=== PATIENT | female | born 1995 | race American Indian/Alaskan Native ===

== ENCOUNTER 2018-11-21 13:06 | Emergency (ER) | payer SELFPAY ==
[2018-11-21 13:18] VITALS: BP 137/76
--- NOTE | 2018-11-21 13:23 | Event Note ---
ED Screening Note Date of service: 11/21/18 Time: 13:23 ED Screening Note: 23 y o f presents with low suprapubic pain and dysuria This initial assessment/diagnostic orders/clinical plan/treatment(s) is/are subject to change based on patients health status, clinical progression and re-assessment by fellow clinical providers in the ED. Further treatment and workup at subsequent clinical providers discretion. Patient/guardian urged not to elope from the ED as their condition may be serious if not clinically assessed and managed. Initial orders include: ua, upt
[2018-11-21 13:42] LABS: Bacteria,Urine 2+ /HPF (Negative); Bilirubin,Urine NEG (Negative); Blood,Urine SM (Negative); Color,Urine Straw (Yellow); Protein,Urine <15 mg/dL mg/dL (Negative); Urobilinogen,Urine < 2.0 mg/dL (<2.0)
[2018-11-21 13:44] LABS: HCG Qualitative,Urine Negative (Negative)
[2018-11-21] MEDS ORDERED: MACROBID PO ONE (13:53)
--- NOTE | 2018-11-21 14:20 | Emergency Department Report ---
ED Female HPI - General Chief complaint: Urogenital-Female Stated complaint: LOWER ABD PAIN Time Seen by Provider: 11/21/18 13:23 Source: patient Mode of arrival: Ambulatory Limitations: No Limitations - History of Present Illness Initial comments: 23-year-old femalecame past medical history presents to the hospital complaining of dysuria times one week. Patient has 2 episodes of hematuria during this week with blood noticed on wiping. She complains of intermittent Suprapubic abdominal pain associated with urination. Positive nausea but denies vomiting, fever, or back pain. Patient states she has had 2 recent positive test with LMP October 19. - Related Data Previous Rx's Medication Instructions Recorded Last Taken Type Nitrofurantoin [place]/M-Cryst 100 mg PO Q12HR #14 capsule 11/21/18 Unknown Rx [Macrobid CAP] Allergies Allergy/AdvReac Type Severity Reaction Status Date / Time No Known Allergies Allergy Verified 07/21/13 11:23 ED Review of Systems ROS: Stated complaint: LOWER ABD PAIN Other details as noted in HPI Comment: All other systems reviewed and negative ED Past Medical Hx - Past Medical History Previous Medical History?: No Hx Congestive Heart Failure: No Hx Diabetes: No Hx Asthma: Yes (last used inhaler 10 yrs ago) Hx COPD: No - Surgical History Past Surgical History?: No - Social History Smoking Status: Never Smoker Substance Use Type: None - Medications Home Medications: Home Medications Medication Instructions Recorded Confirmed Last Taken Type Nitrofurantoin [place]/M-Cryst 100 mg PO Q12HR #14 capsule 11/21/18 Unknown Rx [Macrobid CAP] ED Physical Exam - General Limitations: No Limitations - Other Other exam information: Normal: No acute distress Head: Atraumatic Eyes: Normal appearance ENT: Moist mucous membranes Neck: Normal appearance, no midline cervical tenderness, no meningismus Chest: Clear to auscultation bilaterally, no wheezes, rales, crackles Cardiovascular: Regular rate and rhythm Abdomen: Soft, nontender, nondistended, no rebound or guarding, normal bowel sounds Back: Normal inspection no CVA tenderness Extremity: Normal appearance, full range of motion Neuro: Alert and oriented 3, speech normal, no gross motor sensory deficit Psych: Appropriate Skin: No rash ED Course Vital Signs 11/21/18 13:14 Temperature 98.1 F Pulse Rate 78 Respiratory 18 Rate Blood Pressure 137/76 O2 Sat by Pulse 99 Oximetry ED Medical Decision Making - Medical Decision Making urine hcg neg serum hcg + macrobid for uti f/u advised with ob and pmd - Differential Diagnosis UTI, cystitis, Critical Care Time: No Critical care attestation.: If time is entered above; I have spent that time in minutes in the direct care of this critically ill patient, excluding procedure time. ED Disposition Clinical Impression: Positive test, UTI (urinary tract infection) Disposition: TO HOME OR SELFCARE Is pt being admited?: No Does the pt Need Aspirin: No Condition: Stable Instructions: (ED), Urinary Tract Infection in Women (ED) Additional Instructions: Take your medications as prescribed. Follow-up with your doctor or the clinic/doctor provided. Return if symptoms worsen. Take [id number] vitamins. The urine test was negative but your blood test was positive. Beta Quant level is 171. Follow up with [facility] to continue to m onitor the status of your . Prescriptions: Nitrofurantoin [place]/M-Cryst [Macrobid CAP] 100 mg PO Q12HR #14 capsule Referrals: LUCY OMER MD [Primary Care Provider] - 3-5 Days MACIEJ NEUMANN MD [Staff Physician] - 3-5 Days [facility] [Provider Group] - 3-5 Days Time of Disposition: 14:37
== END 2018-11-21 14:54 | disposition home or self-care (01) ==
LOC: ED 13:06
DX: Z32.01 Encounter for pregnancy test, result positive (principal); N39.0 Urinary tract infection, site not specified; J45.909 Unspecified asthma, uncomplicated; Z79.899 Other long term (current) drug therapy
CPT/HCPCS: 36415; 81001; 81025; 84702; 87086; 99283

== ENCOUNTER 2018-12-15 18:55 | Emergency (ER) | payer MEDICAID, OTHER ==
[2018-12-15 19:44] VITALS: BP 107/70
--- NOTE | 2018-12-15 19:44 | Event Note ---
ED Screening Note Date of service: 12/15/18 Time: 19:42 ED Screening Note: 23 y o f presents at 8 weeks with moderate vaginal bleeding today This initial assessment/diagnostic orders/clinical plan/treatment(s) is/are subject to change based on patients health status, clinical progression and re- assessment by fellow clinical providers in the ED. Further treatment and workup at subsequent clinical providers discretion. Patient/guardian urged not to elope from the ED as their condition may be serious if not clinically assessed and managed. Initial orders include: labs, ua
[2018-12-15 20:06] LABS: Basophils % (Auto) 0.6 % (0.0-1.8); Eosinophils # (Auto) 0.1 K/mm3 (0.0-0.4); Hematocrit 39.6 % (30.3-42.9); Hemoglobin 13.3 gm/dl (10.1-14.3); Lymphocytes # (Auto) 2.7 K/mm3 (1.2-5.4); Mean Corpuscular HGB Conc 34 % (30-34); Mean Corpuscular Volume 89 fl (79-97); Monocytes # (Auto) 0.6 K/mm3 (0.0-0.8); Monocytes % (Auto) 10.1 % (0.0-7.3); Platelet Count 351 K/mm3 (140-440); Red Blood Count 4.45 M/mm3 (3.65-5.03); Red Cell Distribution Width 14.9 % (13.2-15.2)
[2018-12-15 20:49] LABS: Bilirubin,Urine NEG (Negative); Blood,Urine LG (Negative); Color,Urine Yellow (Yellow); Mucus,Urine FEW /HPF; Protein,Urine <15 mg/dL mg/dL (Negative)
--- NOTE | 2018-12-15 21:41 | Emergency Department Report ---
ED HPI - General Chief complaint: Vaginal Bleeding Stated complaint: 7WK PREG/VAGINAL BLEEDING Time Seen by Provider: 12/15/18 19:42 Source: patient Mode of arrival: Ambulatory Limitations: No Limitations - History of Present Illness Initial comments: Patient is a 23-year-old female presents emergency room with complaints of vaginal bleeding that began yesterday. She states yesterday it was just some light spotting but became slightly heavier today. Patient states she is currently 8 weeks . Patient states she has not yet seen an WOOD AND HARDWARE OUTFITTER and has her first appointment on Friday (12/18/18) and has an ultrasound scheduled. Patient denies any abdominal pain, dysuria, vaginal discharge, any other complaints. Patient denies any past medical history or allergies to medications. /P:1/A:0 - Related Data Previous Rx's Medication Instructions Recorded Last Taken Type Nitrofurantoin [place]/M-Cryst 100 mg PO Q12HR #14 capsule 11/21/18 Unknown Rx [Macrobid CAP] Allergies Allergy/AdvReac Type Severity Reaction Status Date / Time No Known Allergies Allergy Verified 07/21/13 11:23 ED Review of Systems ROS: Stated complaint: 7WK PREG/VAGINAL BLEEDING Other details as noted in HPI Comment: All other systems reviewed and negative ED Past Medical Hx - Past Medical History Previous Medical History?: Yes Hx Congestive Heart Failure: No Hx Diabetes: No Hx Asthma: Yes (last used inhaler 10 yrs ago) Hx COPD: No - Surgical History Past Surgical History?: No - Social History Smoking Status: Never Smoker Substance Use Type: None - Medications Home Medications: Home Medications Medication Instructions Recorded Confirmed Last Taken Type Nitrofurantoin [place]/M-Cryst 100 mg PO Q12HR #14 capsule 11/21/18 Unknown Rx [Macrobid CAP] ED Physical Exam - General Limitations: No Limitations General appearance: alert, in no apparent distress - Head Head exam: Present: atraumatic, normocephalic - Eye Eye exam: Present: normal appearance - ENT ENT exam: Present: mucous membranes moist - Respiratory Respiratory exam: Present: normal lung sounds bilaterally. Absent: respiratory distress, wheezes, rales, rhonchi, stridor, chest wall tenderness, accessory muscle use, decreased breath sounds, prolonged expiratory - Cardiovascular Cardiovascular Exam: Present: regular rate, normal rhythm, normal heart sounds. Absent: systolic murmur, diastolic murmur, rubs, gallop - GI/Abdominal GI/Abdominal exam: Present: soft, normal bowel sounds. Absent: distended, tenderness, guarding, rebound, rigid - Back Exam Back exam: Absent: CVA tenderness (R), CVA tenderness (L) - Neurological Exam Neurological exam: Present: alert, oriented X3 - Psychiatric Psychiatric exam: Present: normal affect, normal mood - Skin Skin exam: Present: warm, dry, intact ED Course Vital Signs 12/15/18 19:43 Temperature 98.6 F Pulse Rate 87 Respiratory 18 Rate Blood Pressure 107/70 O2 Sat by Pulse 99 Oximetry ED Medical Decision Making - Lab Data Result diagrams: 12/15/18 19:49 Lab Results 12/15/18 12/15/18 12/15/18 Range/Units 19:49 19:49 19:49 WBC 5.7 (4.5-11.0) K/mm3 RBC 4.45 (3.65-5.03) M/mm3 Hgb 13.3 (10.1-14.3) gm/dl Hct 39.6 (30.3-42.9) % MCV 89 (79-97) fl MCH 30 (28-32) pg MCHC 34 (30-34) % RDW 14.9 (13.2-15.2) % Plt Count 351 (140-440) K/mm3 Lymph % (Auto) 48.0 H (13.4-35.0) % Armstrong % (Auto) 10.1 H (0.0-7.3) % Eos % (Auto) 1.0 (0.0-4.3) % Baso % (Auto) 0.6 (0.0-1.8) % Lymph # 2.7 (1.2-5.4) K/mm3 Armstrong # 0.6 (0.0-0.8) K/mm3 Eos # 0.1 (0.0-0.4) K/mm3 Baso # 0.0 (0.0-0.1) K/mm3 Seg Neutrophils % 40.3 (40.0-70.0) % Seg Neutrophils # 2.3 (1.8-7.7) K/mm3 HCG, Quant 4976 H (0-4) mIU/mL Urine Color (Yellow) Urine Turbidity (Clear) Urine pH (5.0-7.0) Ur Specific [place] (1.003-1.030) Urine Protein (Negative) mg/dL Urine Glucose (UA) (Negative) mg/dL Urine Ketones (Negative) mg/dL Urine Blood (Negative) Urine Nitrite (Negative) Urine Bilirubin (Negative) Urine Urobilinogen (<2.0) mg/dL Ur Leukocyte Esterase (Negative) Urine WBC (Auto) (0.0-6.0) /HPF Urine RBC (Auto) (0.0-6.0) /HPF U Epithel Cells (Auto) (0-13.0) /HPF Urine Mucus /HPF Blood Type O POSITIVE 12/15/18 Range/Units 20:27 WBC (4.5-11.0) K/mm3 RBC (3.65-5.03) M/mm3 Hgb (10.1-14.3) gm/dl Hct (30.3-42.9) % MCV (79-97) fl MCH (28-32) pg MCHC (30-34) % RDW (13.2-15.2) % Plt Count (140-440) K/mm3 Lymph % (Auto) (13.4-35.0) % Armstrong % (Auto) (0.0-7.3) % Eos % (Auto) (0.0-4.3) % Baso % (Auto) (0.0-1.8) % Lymph # (1.2-5.4) K/mm3 Armstrong # (0.0-0.8) K/mm3 Eos # (0.0-0.4) K/mm3 Baso # (0.0-0.1) K/mm3 Seg Neutrophils % (40.0-70.0) % Seg Neutrophils # (1.8-7.7) K/mm3 HCG, Quant (0-4) mIU/mL Urine Color Yellow (Yellow) Urine Turbidity Slightly-cloudy (Clear) Urine pH 5.0 (5.0-7.0) Ur Specific [place] 1.023 (1.003-1.030) Urine Protein <15 mg/dl (Negative) mg/dL Urine Glucose (UA) Neg (Negative) mg/dL Urine Ketones Neg (Negative) mg/dL Urine Blood Lg (Negative) Urine Nitrite Neg (Negative) Urine Bilirubin Neg (Negative) Urine Urobilinogen 2.0 (<2.0) mg/dL Ur Leukocyte Esterase Tr (Negative) Urine WBC (Auto) 2.0 (0.0-6.0) /HPF Urine RBC (Auto) 2.0 (0.0-6.0) /HPF U Epithel Cells (Auto) 3.0 (0-13.0) /HPF Urine Mucus Few /HPF Blood Type - Radiology Data Radiology results: report reviewed ULTRASOUND OBSTETRIC INDICATION / CLINICAL INFORMATION: preg, vaginal bleeding. Clinical Gestational Age (GA): 8 weeks 1 day TECHNIQUE: Transabdominal and Transvaginal. Color Doppler imaging was utilized. COMPARISON: None available. FINDINGS: GESTATIONAL SAC: Small fluid collection within the uterus may represent early gestational sac. Gestational sac measures 8.8 mm corresponding to 5 weeks 5 days gestational age. YOLK SAC: Present. EMBRYO/FETUS: No definite abnormality. - [place]-Rump Length = 0.38 cm = 6 weeks, 0 day(s). - Heart Rate, beats per minute (if present) = not detected ADNEXA: Mildly complex left ovarian cyst measuring 2.3 cm. Tiny calcification in the right ovary. FREE FLUID: None. ADDITIONAL FINDINGS: None. IMPRESSION: 1. Probable intrauterine with gestational sac, embryonic pole, and yolk sac visualized. Estimated sonographic age is 5 weeks 6 days. 2. No cardiac activity identified in this early . Sonographic follow-up is recommended. 3. 2.3 cm complex left ovarian cyst. Signer Name: Rossi Stallings MD Signed: 12/15/2018 11:19 PM Workstation Name: [id number] Transcribed By: DT Dictated By: Checo Stallings MD Electronically Authenticated By: Checo Stallings MD Signed Date/Time: 12/15/18 3426 - Medical Decision Making Patient is a 23-year-old female presents emergency room with complaints of vaginal bleeding that began yesterday. She states yesterday it was just some light spotting but became slightly heavier today. Patient states she is currently 8 weeks . Patient states she has not yet seen an WO[facility] HARDWARE OUTFITTER and has her first appointment on Friday (12/18/18) and has an ultrasound scheduled. Patient denies any abdominal pain, dysuria, vaginal discharge, any other complaints. Patient denies any past medical history or allergies to medications. /P:1/A:0. VSS. labs are stable. hcg quant is 4976. pt is Rh positive. OB US: 1. Probable intrauterine with gestational sac, embryonic pole, and yolk sac visualized. Estimated sonographic age is 5 weeks 6 days. 2. No cardiac activity identified in this early . Sonographic follow-up is recommended. 3. 2.3 cm complex left ovarian cyst. discussed US results with pt, discussed could be miscarriage vs early , discussed threatened miscarriage with pt. advised pt to please increase your water intake. please take a daily vitamin [id number]. Please have a repeat beta hCG Quant in 2 days. Today your hCG Quant was 4976. please follow-up with her WOOD AND HARDWARE OUTFITTER in the next 2-3 days. return to the emergency room for any New or worsening symptoms. - Differential Diagnosis IUP, ectopic, placenta previa, hemorrhagic cyst, subchorionic hemorrhage Critical care attestation.: If time is entered above; I have spent that time in minutes in the direct care of this critically ill patient, excluding procedure time. ED Disposition Clinical Impression: Threatened miscarriage Disposition: DC-01 TO HOME OR SELFCARE Is pt being admited?: No Does the pt Need Aspirin: No Condition: Stable Instructions: Threatened Miscarriage (ED) Additional Instructions: Please increase your water intake. please take a daily vitamin [id number]. Please have a repeat beta hCG Quant in 2 days. Today your hCG Quant was 4976. please follow-up with her WOOD AND HARDWARE OUTFITTER in the next 2-3 days. return to the emergency room for any New or worsening symptoms. Referrals: your, [facility] HARDWARE OUTFITTER [Other] - 2-3 Days Time of Disposition: 23:29 Print Language: YI
--- NOTE | 2018-12-15 23:24 | Ultrasound Report ---
ULTRASOUND OBSTETRIC INDICATION / CLINICAL INFORMATION: preg, vaginal bleeding. Clinical Gestational Age (GA): 8 weeks 1 day TECHNIQUE: Transabdominal and Transvaginal. Color Doppler imaging was utilized. COMPARISON: None available. FINDINGS: GESTATIONAL SAC: Small fluid collection within the uterus may represent early gestational sac. Gestat ional sac measures 8.8 mm corresponding to 5 weeks 5 days gestational age. YOLK SAC: Present. EMBRYO/FETUS: No definite abnormality. - [place]-Rump Length = 0.38 cm = 6 weeks, 0 day(s). - Heart Rate, beats per minute (if present) = not detected ADNEXA: Mildly complex left ovarian cyst measuring 2.3 cm. Tiny calcification in the right ovary. FREE FLUID: None. ADDITIONAL FINDINGS: None. IMPRESSION: 1. Probable intrauterine with gestational sac, embryonic pole, and yolk sac visualized. Est imated sonographic age is 5 weeks 6 days. 2. No cardiac activity identified in this early . Sonographic follow-up is recommended . 3. 2.3 cm complex left ovarian cyst. Signer Name: Rossi Stallings MD Signed: 12/15/2018 11:19 PM Workstation Name: [id number]
--- NOTE | 2018-12-15 23:24 | Ultrasound Report ---
ULTRASOUND OBSTETRIC INDICATION / CLINICAL INFORMATION: preg, vaginal bleeding. Clinical Gestational Age (GA): 8 weeks 1 day TECHNIQUE: Transabdominal and Transvaginal. Color Doppler imaging was utilized. COMPARISON: None available. FINDINGS: GESTATIONAL SAC: Small fluid collection within the uterus may represent early gestational sac. Gestat ional sac measures 8.8 mm corresponding to 5 weeks 5 days gestational age. YOLK SAC: Present. EMBRYO/FETUS: No definite abnormality. - [place]-Rump Length = 0.38 cm = 6 weeks, 0 day(s). - Heart Rate, beats per minute (if present) = not detected ADNEXA: Mildly complex left ovarian cyst measuring 2.3 cm. Tiny calcification in the right ovary. FREE FLUID: None. ADDITIONAL FINDINGS: None. IMPRESSION: 1. Probable intrauterine with gestational sac, embryonic pole, and yolk sac visualized. Est imated sonographic age is 5 weeks 6 days. 2. No cardiac activity identified in this early . Sonographic follow-up is recommended . 3. 2.3 cm complex left ovarian cyst. Signer Name: Rossi Stallings MD Signed: 12/15/2018 11:19 PM Workstation Name: [id number]
== END 2018-12-15 23:35 | disposition home or self-care (01) ==
LOC: ED 18:55
DX: O20.0 Threatened abortion (principal); O99.511 Diseases of the respiratory system complicating pregnancy, first trimester; J45.909 Unspecified asthma, uncomplicated; Z3A.08 8 weeks gestation of pregnancy; Z79.899 Other long term (current) drug therapy
CPT/HCPCS: 36415; 76801; 76817; 81001; 84702; 85025; 86900; 86901; 99284

== ENCOUNTER 2019-10-20 21:44 | Emergency (ER) | payer MEDICAID ==
[2019-10-21 00:37] LABS: Basophils % (Auto) 0.7 % (0.0-1.8); Eosinophils % (Auto) 0.3 % (0.0-4.3); Hemoglobin 11.9 gm/dl (10.1-14.3); Lymphocytes % (Auto) 46.6 % (13.4-35.0); Mean Corpuscular HGB Conc 33 % (30-34); Mean Corpuscular Volume 86 fl (79-97); Monocytes # (Auto) 0.5 K/mm3 (0.0-0.8); Monocytes % (Auto) 8.2 % (0.0-7.3); Platelet Count 352 K/mm3 (140-440); Red Blood Count 4.21 M/mm3 (3.65-5.03); Red Cell Distribution Width 17.1 % (13.2-15.2)
[2019-10-21 04:51] LABS: Alanine Aminotransferase 20 units/L (7-56); Albumin 4.5 g/dL (3.9-5); BUN/Creatinine Ratio 16; Blood Urea Nitrogen 8 mg/dL (7-17); Hemolysis Index 2
--- NOTE | 2019-10-21 04:57 | Ultrasound Report ---
Early obstetrical ultrasound INDICATION: Early , bleeding TECHNIQUE: Transabdominal FINDINGS: Intrauterine is noted with a pole and yolk sac seen. Estimated gestational age by crown-rump length is 7 weeks 0 days which is less than the 10 weeks 4 days expected by clinica l dating. No cardiac activity was detected. Ovaries appear within normal limits. No free fluid is seen. IMPRESSION: Early demise Signer Name: Apollo Hale MD Signed: 10/21/2019 4:53 AM Workstation Name: [id number]
[2019-10-21 05:12] LABS: Bilirubin,Urine NEG (Negative); Blood,Urine NEG (Negative); Color,Urine Yellow (Yellow); Mucus,Urine 2+ /HPF; Protein,Urine <15 mg/dL mg/dL (Negative); Urobilinogen,Urine < 2.0 mg/dL (<2.0)
--- NOTE | 2019-10-21 05:28 | Emergency Department Report ---
ED HPI - General Chief complaint: Vaginal Bleeding Stated complaint: POSS MISCARRIAGE Time Seen by Provider: 10/21/19 05:15 Source: patient Mode of arrival: Ambulatory Limitations: No Limitations - History of Present Illness Initial comments: Patient is a 23-year-old female that presents emergency room with complaints of vaginal bleeding and threatened miscarriage. Patient states she has had 2 other miscarriages in the past. Patient states that she did not have any pain with this vaginal bleeding. Patient states her vaginal bleeding also stopped while waiting in the waiting room. Patient denies abdominal pain. Patient denies cramping. Patient states she is not sure when her last cycle was. Patient states she sees [facility] for her [facility]ANCE [facility] PROGRAM MANAGER care. Patient states her symptoms started at 930 yesterday. Patient states 2 weeks ago she had an ultrasound and the baby had a heartbeat. Patient denies recent travel. Patient denies recent international travel. Patient denies exposure to the novel coronavirus. Patient denies sick contacts. Patient denies fever and chills. Patient denies cough. Patient denies diarrhea. Patient denies coming in contact with anybody with symptoms of the novel coronavirus. MD Complaint: vaginal bleeding -: Sudden Severity: severe Consistency: constant Associated symptoms: vaginal bleeding. denies: vaginal discharge, abdominal pain, dysuria, headache, vision changes, malaise, dysparuenia, rash, seizure, shortness of breath, syncope, weakness Vaginal bleeding: heavy :: Yes OB History - Current : no complications OB History - Previous Pregnancies: miscarriage Pre-ana care: followed by OB - Related Data Previous Rx's Medication Instructions Recorded Last Taken Type Nitrofurantoin [place]/M-Cryst 100 mg PO Q12HR #14 capsule 11/21/18 Unknown Rx [Macrobid CAP] Allergies Allergy/AdvReac Type Severity Reaction Status Date / Time No Known Allergies Allergy Verified 07/21/13 11:23 ED Review of Systems ROS: Stated complaint: POSS MISCARRIAGE Other details as noted in HPI Constitutional: denies: chills, fever Eyes: denies: eye pain, eye discharge, vision change ENT: denies: ear pain, throat pain Respiratory: denies: cough, shortness of breath, wheezing Cardiovascular: denies: chest pain, palpitations Endocrine: no symptoms reported Gastrointestinal: denies: abdominal pain, nausea, diarrhea Genitourinary: denies: urgency, dysuria, discharge Musculoskeletal: denies: back pain, joint swelling, arthralgia Skin: denies: rash, lesions Neurological: denies: headache, weakness, paresthesias Psychiatric: denies: anxiety, depression Hematological/Lymphatic: denies: easy bleeding, easy bruising ED Past Medical Hx - Past Medical History Previous Medical History?: Yes Hx Congestive Heart Failure: No Hx Diabetes: No Hx Asthma: Yes (last used inhaler 10 yrs ago) Hx COPD: No Additional medical history: 2 miscarriages - Surgical History Past Surgical History?: Yes - Family History Family history: no significant - Social History Smoking Status: Never Smoker Substance Use Type: None - Medications Home Medications: Home Medications Medication Instructions Recorded Confirmed Last Taken Type Nitrofurantoin [place]/M-Cryst 100 mg PO Q12HR #14 capsule 11/21/18 Unknown Rx [Macrobid CAP] ED Physical Exam - General Limitations: No Limitations General appearance: alert, in no apparent distress - Head Head exam: Present: atraumatic, normocephalic - Eye Eye exam: Present: normal appearance - ENT ENT exam: Present: mucous membranes moist - Neck Neck exam: Present: normal inspection - Respiratory Respiratory exam: Present: normal lung sounds bilaterally. Absent: respiratory distress - Cardiovascular Cardiovascular Exam: Present: regular rate, normal rhythm. Absent: systolic murmur, diastolic murmur, rubs, gallop - GI/Abdominal GI/Abdominal exam: Present: soft, normal bowel sounds - Extremities Exam Extremities exam: Present: normal inspection - Back Exam Back exam: Present: normal inspection - Neurological Exam Neurological exam: Present: alert, oriented X3 - Psychiatric Psychiatric exam: Present: normal affect, normal mood - Skin Skin exam: Present: warm, dry, intact, normal color. Absent: rash ED Course - Reevaluation(s) Reevaluation #1: I discussed all results and clinical findings with patient. I discussed plan of care with patient. Patient agrees with plan of care. Patient is stable for discharge. Patient will be discharged home. Patient given discharge instructions. Patient voiced understanding of discharge instructions. 10/21/19 05:41 - Consultations Consultation #1: I discussed case with Dr. Tristan who is on-call for [facility] PROGRAM MANAGER. Dr. Tristan recommends discharge home and to follow-up in their office within 2 to 3 days. 08/06/20 05:35 ED Medical Decision Making - Lab Data Result diagrams: 10/20/19 23:56 10/21/19 04:24 - Radiology Data Radiology results: report reviewed Early obstetrical ultrasound INDICATION: Early , bleeding TECHNIQUE: Transabdominal FINDINGS: Intrauterine is noted with a pole and yolk sac seen. Estimated gestational age by crown-rump length is 7 weeks 0 days which is less than the 10 weeks 4 days expected by clinical dating. No cardiac activity was detected. Ovaries appear within normal limits. No free fluid is seen. IMPRESSION: Early demise - Medical Decision Making Patient is a 23-year-old female presents emergency room for vaginal bleeding during . Patient hCG is positive. Patient labs are essentially unremarkable. Patient had an ultrasound which was positive for early demise. Patient will be referred back to her QUALITY ASSURANCE TEST PROGRAM MANAGER for serial hCGs. I discussed case with Dr. Tristan at [facility] ASSURANCE TEST PROGRAM MANAGER. Dr. Vickers recommends discharge and follow-up in the office. Patient is stable for discharge. Patient given discharge instructions. - Differential Diagnosis Miscarriage, threatened miscarriage, vaginal bleeding. Critical care attestation.: If time is entered above; I have spent that time in minutes in the direct care of this critically ill patient, excluding procedure time. ED Disposition Clinical Impression: Miscarriage, Vaginal bleeding during , demise Qualifiers: Weeks of gestation: 9 weeks Qualified Code(s): Z3A.09 - 9 weeks gestation of Disposition: - TO HOME OR SELFCARE Is pt being admited?: No Does the pt Need Aspirin: No Condition: Stable Instructions: Spontaneous Miscarriage (ED) Additional Instructions: Patient to follow-up with primary care in 2 to 3 days. Patient to follow-up with QUALITY ASSURANCE TEST PROGRAM MANAGER in 2 to 3 days. Patient to rest. Patient to increase water. Patient to take a vitamin. Patient to avoid strenuous exercise or heavy lifting until cleared by QUALITY ASSURANCE TEST PROGRAM MANAGER. Patient to take Tylenol or ibuprofen as needed for pain. Patient to take meds as directed. Patient to return to the ER if condition worsens, changes or new symptoms arise. Referrals: DARRION BLACKWELL [Other] - 2-3 Days VALE TRISTAN MD [Staff Physician] - 2-3 Days Time of Disposition: 05:41
== END 2019-10-21 05:45 | disposition home or self-care (01) ==
LOC: ED 21:44
DX: O03.9 Complete or unspecified spontaneous abortion without complication (principal); J45.909 Unspecified asthma, uncomplicated; Z3A.01 Less than 8 weeks gestation of pregnancy; Z79.899 Other long term (current) drug therapy
CPT/HCPCS: 36415; 76801; 80053; 81001; 84702; 85025; 86900; 86901

== ENCOUNTER 2020-07-14 21:52 | Outpatient (CLI) | payer MEDICAID ==
[2020-07-14 22:24] VITALS: BP 118/58
[2020-07-14] MEDS ORDERED: LACTATED RINGERS 1,000 ML IV ONE (22:48)
== END 2020-07-15 03:40 | disposition home or self-care (01) ==
LOC: TRG 21:52 → APU 21:53 → TRG 07-15 03:40
DX: O47.03 False labor before 37 completed weeks of gestation, third trimester (principal); Z3A.36 36 weeks gestation of pregnancy
CPT/HCPCS: 59025

== ENCOUNTER 2020-07-15 15:30 | Outpatient (CLI) | payer MEDICAID ==
[2020-07-15 16:01] VITALS: BP 113/74
== END 2020-07-15 17:34 | disposition home or self-care (01) ==
LOC: APU 15:30 → TRG 15:30
DX: O47.1 False labor at or after 37 completed weeks of gestation (principal); O26.893 Other specified pregnancy related conditions, third trimester; R11.0 Nausea; M54.5 Low back pain; Z3A.37 37 weeks gestation of pregnancy
CPT/HCPCS: 59025

== ENCOUNTER 2020-07-17 23:16 | Outpatient (CLI) | payer MEDICAID ==
[2020-07-17 23:58] VITALS: BP 120/69
[2020-07-18] MEDS ORDERED: ACETAMINOPHEN 500 MG TAB PO ONE (01:37)
[2020-07-18] MEDS ORDERED: ACETAMINOPHEN W/CODEINE 300-30 MG TAB PO ONE (01:37)
== END 2020-07-18 01:45 | disposition home or self-care (01) ==
LOC: TRG 23:16 → APU 23:17 → TRG 07-18 01:45
PROVIDERS: ATTEND Obstetrics & Gynecology
DX: Z34.93 Encounter for supervision of normal pregnancy, unspecified, third trimester (principal); Z3A.37 37 weeks gestation of pregnancy
CPT/HCPCS: 59025

== ENCOUNTER 2020-08-02 22:29 | Outpatient (CLI) | payer MEDICAID | END 2020-08-02 23:39 | disposition home or self-care (01) | LOC: TRG 22:29 → APU 22:30 | CPT/HCPCS: 59025 ==

== ENCOUNTER 2020-08-05 13:46 | Inpatient (IN) | payer MEDICAID ==
[2020-08-05] MEDS ORDERED: ONDANSETRON 4 MG/2 ML INJ IV PRN (17:29)
[2020-08-05] MEDS ORDERED: BUTORPHANOL 2 MG/1 ML INJ IV PRN ×2 (17:29)
[2020-08-05] MEDS ORDERED: fentaNYL 100 MCG/2 ML INJ IV PRN (17:29)
[2020-08-05] MEDS ORDERED: miSOPROStol 25 MCG TAB PO ONE (17:29)
[2020-08-05] MEDS ORDERED: LIDOCAINE (2%) 20 MG/1 ML VIAL 20 ML MDV INFILTRATI ONE (17:29)
[2020-08-05] MEDS ORDERED: MINERAL OIL 30 ML ORAL LIQD PO PRN (17:29)
[2020-08-05] MEDS ORDERED: ACETAMINOPHEN 325 MG TAB PO PRN (17:29)
[2020-08-05] MEDS ORDERED: TERBUTALINE 1 MG/1 ML INJ SUB-Q PRN (17:29)
[2020-08-05] MEDS ORDERED: ePHEDrine SULFATE 50 MG/1 ML INJ IV PRN (17:29)
--- NOTE | 2020-08-05 17:29 | History and Physical Report ---
History of Present Illness Date of examination: 08/05/20 Date of admission: 08/05/2020 Chief complaint: PROM at 39.5 weeks PNC at [facility] GBS pos Past History Past Surgical History: no surgical history - Obstetrical History Expected Date of Delivery: 08/07/20 Actual Gestation: 39 Week(s) 5 Day(s) : 6 Medications and Allergies Allergies Allergy/AdvReac Type Severity Reaction Status Date / Time No Known Allergies Allergy Verified 07/21/13 11:23 Home Medications Medication Instructions Recorded Confirmed Last Taken Type Pnv No.153/FA/Om3/Dha/Epa/Fish 1 each PO DAILY 07/15/20 07/15/20 07/15/20 History [[facility]] - Vital Signs Vital signs: Vital Signs Pulse BP 79 121/76 08/05/20 14:45 08/05/20 14:45 Temp Pulse Resp BP Pulse Ox 98.1 F 75 121/76 99 08/05/20 14:50 08/05/20 15:30 08/05/20 14:45 08/05/20 15:30 - Physical Exam Breasts: Positive: deferred Cardiovascular: Regular rate Lungs: Positive: Clear to auscultation Abdomen: Positive: normal appearance, soft, normal bowel sounds Genitourinary (Female): Positive: normal external genitalia Uterus: Positive: enlarged (FH 40cm) Anus/Rectum: Positive: normal perianal skin Extremities: Positive: normal Deep Tendon Reflex Grade: Normal +2 - Obstetrical FHR: category 1 Cervical Dilatation: 2 Cervical Effacement Percentage: 20 station: -3 Uterine Contraction Pattern: Irregular Results Result Diagrams: 08/05/20 18:32 Abnormal lab results 08/05/20 Range/Units 14:50 Membranes Rupture Positive A (Negative) All other labs normal. Assessment and Plan admission cytotec abx for GBS if appropriate CFM pain meds yovanny Kowalski MD
[2020-08-05] MEDS ORDERED: LACTATED RINGERS 1,000 ML IV SCH (17:30)
[2020-08-05] MEDS ORDERED: OXYTOCIN DRIP 30 UNITS/500 ML BAG IV SCH (18:00)
[2020-08-05] MEDS ORDERED: AMPICILLIN/NS 2 GM/100 ML 2 GM/100 ML BAG IV ONE (18:00)
[2020-08-05 18:58] LABS: Mean Corpuscular HGB Conc 33 % (30-34); Mean Corpuscular Volume 86 fl (79-97); Platelet Count 367 K/mm3 (140-440); Red Blood Count 4.18 M/mm3 (3.65-5.03); Red Cell Distribution Width 14.7 % (13.2-15.2)
[2020-08-05] MEDS ORDERED: miSOPROStol 100 MCG TAB ONE (21:02)
--- NOTE | 2020-08-06 04:31 | Progress Note ---
Subjective - Subjective Date of service: 08/06/20 Interval history: pt doing well, received cytotex 25mcg POx2 doses cervix 4cm/50%/-3 FHT 130 baseline, moderate variability: Category 1 [place]: Q4-5 minutes Maternal/ well being reassuring at this time. Continue current plan of care Suzi Kowalski MD Objective - Vital Signs Vital Signs: Vital Signs - 12hr 08/05/20 08/05/20 08/05/20 18:12 18:14 18:19 Temperature Pulse Rate 75 85 67 Blood Pressure 137/88 O2 Sat by Pulse 100 99 Oximetry 08/05/20 08/05/20 08/05/20 18:24 18:29 18:34 Temperature Pulse Rate 75 75 88 Blood Pressure O2 Sat by Pulse 100 100 98 Oximetry 08/05/20 08/05/20 08/05/20 18:39 18:44 18:45 Temperature Pulse Rate 65 69 68 Blood Pressure 125/79 O2 Sat by Pulse 98 98 Oximetry 08/05/20 08/05/20 08/05/20 18:49 18:54 18:59 Temperature Pulse Rate 76 64 Blood Pressure O2 Sat by Pulse 98 98 100 Oximetry 08/05/20 08/05/20 08/05/20 19:04 19:09 19:14 Temperature Pulse Rate 73 75 73 Blood Pressure O2 Sat by Pulse 100 100 99 Oximetry 08/05/20 08/05/20 08/05/20 19:15 19:19 19:24 Temperature Pulse Rate 68 90 95 H Blood Pressure 122/76 O2 Sat by Pulse 98 98 Oximetry 08/05/20 08/05/20 08/05/20 19:29 19:34 19:38 Temperature Pulse Rate 75 75 85 Blood Pressure O2 Sat by Pulse 99 100 92 Oximetry 08/05/20 08/05/20 08/05/20 19:39 19:44 19:49 Temperature Pulse Rate 78 85 78 Blood Pressure 128/85 O2 Sat by Pulse 98 100 100 Oximetry 08/05/20 08/05/20 08/05/20 19:52 19:54 19:59 Temperature Pulse Rate 78 72 75 Blood Pressure O2 Sat by Pulse 89 100 100 Oximetry 08/05/20 08/05/20 08/05/20 20:04 20:09 20:14 Temperature Pulse Rate 75 81 84 Blood Pressure O2 Sat by Pulse 100 100 100 Oximetry 08/05/20 08/05/20 08/05/20 20:15 20:19 20:24 Temperature Pulse Rate 71 68 78 Blood Pressure 141/90 O2 Sat by Pulse 100 100 Oximetry 08/05/20 08/05/20 08/05/20 20:29 20:34 20:39 Temperature Pulse Rate 69 73 69 Blood Pressure O2 Sat by Pulse 100 100 99 Oximetry 08/05/20 08/05/20 08/05/20 20:42 20:44 20:49 Temperature Pulse Rate 75 74 73 Blood Pressure 132/76 O2 Sat by Pulse 87 98 99 Oximetry 08/05/20 08/05/20 08/05/20 20:54 20:59 21:04 Temperature Pulse Rate 72 66 72 Blood Pressure O2 Sat by Pulse 100 99 100 Oximetry 08/05/20 08/05/20 08/05/20 21:09 21:14 21:19 Temperature Pulse Rate 86 69 72 Blood Pressure 120/76 O2 Sat by Pulse 98 96 100 Oximetry 08/05/20 08/05/20 08/05/20 21:24 21:29 21:34 Temperature Pulse Rate 71 72 76 Blood Pressure O2 Sat by Pulse 100 99 99 Oximetry 08/05/20 08/05/20 08/05/20 21:39 21:44 21:46 Temperature Pulse Rate 72 75 70 Blood Pressure 134/92 O2 Sat by Pulse 98 97 94 Oximetry 08/05/20 08/05/20 08/05/20 21:49 21:51 21:54 Temperature Pulse Rate 70 76 71 Blood Pressure O2 Sat by Pulse 99 88 98 Oximetry 08/05/20 08/05/20 08/05/20 21:59 22:04 22:09 Temperature Pulse Rate 66 79 70 Blood Pressure O2 Sat by Pulse 98 100 100 Oximetry 08/05/20 08/05/20 08/05/20 22:14 22:19 22:24 Temperature Pulse Rate 66 70 66 Blood Pressure 127/84 O2 Sat by Pulse 100 100 100 Oximetry 08/05/20 08/05/20 08/05/20 22:29 22:37 22:42 Temperature Pulse Rate 72 57 L 71 Blood Pressure O2 Sat by Pulse 100 80 L 100 Oximetry 08/05/20 08/05/20 08/05/20 22:45 22:47 22:52 Temperature Pulse Rate 71 70 76 Blood Pressure 125/84 O2 Sat by Pulse 100 99 Oximetry 08/05/20 08/05/20 08/05/20 22:57 23:02 23:06 Temperature Pulse Rate 69 64 81 Blood Pressure O2 Sat by Pulse 100 99 82 L Oximetry 08/05/20 08/05/20 08/05/20 23:07 23:12 23:14 Temperature Pulse Rate 77 67 68 Blood Pressure 125/87 O2 Sat by Pulse 99 99 Oximetry 08/05/20 08/05/20 08/05/20 23:17 23:18 23:22 Temperature 97.7 F Pulse Rate 64 69 Blood Pressure O2 Sat by Pulse 98 99 Oximetry 08/05/20 08/05/20 08/05/20 23:27 23:32 23:37 Temperature Pulse Rate 60 72 65 Blood Pressure O2 Sat by Pulse 99 98 99 Oximetry 08/05/20 08/05/20 08/05/20 23:42 23:44 23:47 Temperature Pulse Rate 66 61 70 Blood Pressure 121/78 O2 Sat by Pulse 99 98 Oximetry 08/05/20 08/05/20 08/06/20 23:52 23:57 00:02 Temperature Pulse Rate 63 73 65 Blood Pressure O2 Sat by Pulse 99 100 98 Oximetry 08/06/20 08/06/20 08/06/20 00:07 00:12 00:14 Temperature Pulse Rate 61 60 63 Blood Pressure 111/72 O2 Sat by Pulse 99 99 Oximetry 08/06/20 08/06/20 08/06/20 00:17 00:22 00:27 Temperature Pulse Rate 58 L 61 65 Blood Pressure O2 Sat by Pulse 98 97 97 Oximetry 08/06/20 08/06/20 08/06/20 00:32 00:37 00:42 Temperature Pulse Rate 67 88 75 Blood Pressure O2 Sat by Pulse 97 97 96 Oximetry 08/06/20 08/06/20 08/06/20 00:44 00:47 00:52 Temperature Pulse Rate 63 71 77 Blood Pressure 110/69 O2 Sat by Pulse 97 97 Oximetry 08/06/20 08/06/20 08/06/20 00:57 01:02 01:07 Temperature Pulse Rate 81 69 73 Blood Pressure O2 Sat by Pulse 97 98 98 Oximetry 08/06/20 08/06/20 08/06/20 01:12 01:15 01:17 Temperature Pulse Rate 68 81 63 Blood Pressure 130/72 O2 Sat by Pulse 98 99 Oximetry 08/06/20 08/06/20 08/06/20 01:22 01:27 01:32 Temperature Pulse Rate 61 59 L 63 Blood Pressure O2 Sat by Pulse 96 99 98 Oximetry 08/06/20 08/06/20 08/06/20 01:37 01:42 01:46 Temperature Pulse Rate 61 66 59 L Blood Pressure 104/66 O2 Sat by Pulse 99 98 Oximetry 08/06/20 08/06/20 08/06/20 01:47 01:52 01:57 Temperature Pulse Rate 57 L 55 L 64 Blood Pressure O2 Sat by Pulse 98 98 98 Oximetry 08/06/20 08/06/20 08/06/20 02:02 02:07 02:12 Temperature Pulse Rate 57 L 60 67 Blood Pressure O2 Sat by Pulse 99 98 99 Oximetry 08/06/20 08/06/20 08/06/20 02:14 02:17 02:22 Temperature Pulse Rate 66 64 69 Blood Pressure 111/69 O2 Sat by Pulse 99 100 Oximetry 08/06/20 08/06/20 08/06/20 02:27 02:32 02:37 Temperature Pulse Rate 72 67 65 Blood Pressure O2 Sat by Pulse 99 99 99 Oximetry 08/06/20 08/06/20 08/06/20 02:42 02:44 02:47 Temperature Pulse Rate 71 61 61 Blood Pressure 118/81 O2 Sat by Pulse 100 100 Oximetry 08/06/20 08/06/20 08/06/20 02:52 02:57 03:02 Temperature Pulse Rate 70 71 71 Blood Pressure O2 Sat by Pulse 99 99 99 Oximetry 08/06/20 08/06/20 08/06/20 03:07 03:12 03:15 Temperature Pulse Rate 73 74 68 Blood Pressure 108/62 O2 Sat by Pulse 99 99 Oximetry 08/06/20 08/06/20 08/06/20 03:17 03:22 03:27 Temperature Pulse Rate 73 73 79 Blood Pressure O2 Sat by Pulse 98 99 98 Oximetry 08/06/20 08/06/20 08/06/20 03:32 03:37 03:42 Temperature Pulse Rate 76 75 96 H Blood Pressure O2 Sat by Pulse 98 98 97 Oximetry 08/06/20 08/06/20 08/06/20 03:44 03:47 03:52 Temperature Pulse Rate 56 L 58 L 65 Blood Pressure 101/57 O2 Sat by Pulse 99 99 Oximetry 08/06/20 08/06/20 08/06/20 03:57 04:02 04:07 Temperature Pulse Rate 70 59 L 60 Blood Pressure O2 Sat by Pulse 99 99 99 Oximetry 08/06/20 08/06/20 08/06/20 04:12 04:14 04:17 Temperature Pulse Rate 80 63 60 Blood Pressure 136/82 O2 Sat by Pulse 100 100 Oximetry 08/06/20 04:22 Temperature Pulse Rate 61 Blood Pressure O2 Sat by Pulse 100 Oximetry - Labs Labs: Abnormal Labs 08/05/20 14:50 Membranes Rupture Positive A Laboratory Results - last 24 hr 08/05/20 08/05/20 08/05/20 14:50 18:32 18:32 WBC 8.5 RBC 4.18 Hgb 12.0 Hct 36.0 MCV 86 MCH 29 MCHC 33 RDW 14.7 Plt Count 367 Membranes Rupture Positive A Blood Type O POSITIVE Antibody Screen Negative
--- NOTE | 2020-08-06 09:21 | Progress Note ---
Assessment and Plan A: at 39 weeks, 6 days gestation. GBS positive. SROM. P: Continuous EFM. GBS prophylaxis. Augmentation of labor. Subjective - Subjective Date of service: 08/06/20 Principal diagnosis: at 39 weeks, 6 days gestation, SROM Interval history: Assumed care of patient at 08:00 today. Patient is leaking clear fluid. Having contractions every 2-4 minutes. Uterus palpates soft between contractions. Patient received cytotec earlier this AM. Category 1 FHR tracing. SVE /-3. Patient reports: loss of fluid, contractions, no vaginal bleeding Objective - Vital Signs Vital Signs: Vital Signs - 12hr 08/05/20 08/05/20 08/05/20 21:19 21:24 21:29 Temperature Pulse Rate 72 71 72 Respiratory Rate Blood Pressure Blood Pressure [Right] O2 Sat by Pulse 100 100 99 Oximetry 08/05/20 08/05/20 08/05/20 21:34 21:39 21:44 Temperature Pulse Rate 76 72 75 Respiratory Rate Blood Pressure 134/92 Blood Pressure [Right] O2 Sat by Pulse 99 98 97 Oximetry 08/05/20 08/05/20 08/05/20 21:46 21:49 21:51 Temperature Pulse Rate 70 70 76 Respiratory Rate Blood Pressure Blood Pressure [Right] O2 Sat by Pulse 94 99 88 Oximetry 08/05/20 08/05/20 08/05/20 21:54 21:59 22:04 Temperature Pulse Rate 71 66 79 Respiratory Rate Blood Pressure Blood Pressure [Right] O2 Sat by Pulse 98 98 100 Oximetry 08/05/20 08/05/20 08/05/20 22:09 22:14 22:19 Temperature Pulse Rate 70 66 70 Respiratory Rate Blood Pressure 127/84 Blood Pressure [Right] O2 Sat by Pulse 100 100 100 Oximetry 08/05/20 08/05/20 08/05/20 22:24 22:29 22:37 Temperature Pulse Rate 66 72 57 L Respiratory Rate Blood Pressure Blood Pressure [Right] O2 Sat by Pulse 100 100 80 L Oximetry 08/05/20 08/05/20 08/05/20 22:42 22:45 22:47 Temperature Pulse Rate 71 71 70 Respiratory Rate Blood Pressure 125/84 Blood Pressure [Right] O2 Sat by Pulse 100 100 Oximetry 08/05/20 08/05/20 08/05/20 22:52 22:57 23:02 Temperature Pulse Rate 76 69 64 Respiratory Rate Blood Pressure Blood Pressure [Right] O2 Sat by Pulse 99 100 99 Oximetry 08/05/20 08/05/20 08/05/20 23:06 23:07 23:12 Temperature Pulse Rate 81 77 67 Respiratory Rate Blood Pressure Blood Pressure [Right] O2 Sat by Pulse 82 L 99 99 Oximetry 08/05/20 08/05/20 08/05/20 23:14 23:17 23:18 Temperature 97.7 F Pulse Rate 68 64 Respiratory Rate Blood Pressure 125/87 Blood Pressure [Right] O2 Sat by Pulse 98 Oximetry 08/05/20 08/05/20 08/05/20 23:22 23:27 23:32 Temperature Pulse Rate 69 60 72 Respiratory Rate Blood Pressure Blood Pressure [Right] O2 Sat by Pulse 99 99 98 Oximetry 08/05/20 08/05/20 08/05/20 23:37 23:42 23:44 Temperature Pulse Rate 65 66 61 Respiratory Rate Blood Pressure 121/78 Blood Pressure [Right] O2 Sat by Pulse 99 99 Oximetry 08/05/20 08/05/20 08/05/20 23:47 23:52 23:57 Temperature Pulse Rate 70 63 73 Respiratory Rate Blood Pressure Blood Pressure [Right] O2 Sat by Pulse 98 99 100 Oximetry 08/06/20 08/06/20 08/06/20 00:02 00:07 00:12 Temperature Pulse Rate 65 61 60 Respiratory Rate Blood Pressure Blood Pressure [Right] O2 Sat by Pulse 98 99 99 Oximetry 08/06/20 08/06/20 08/06/20 00:14 00:17 00:22 Temperature Pulse Rate 63 58 L 61 Respiratory Rate Blood Pressure 111/72 Blood Pressure [Right] O2 Sat by Pulse 98 97 Oximetry 08/06/20 08/06/20 08/06/20 00:27 00:32 00:37 Temperature Pulse Rate 65 67 88 Respiratory Rate Blood Pressure Blood Pressure [Right] O2 Sat by Pulse 97 97 97 Oximetry 08/06/20 08/06/20 08/06/20 00:42 00:44 00:47 Temperature Pulse Rate 75 63 71 Respiratory Rate Blood Pressure 110/69 Blood Pressure [Right] O2 Sat by Pulse 96 97 Oximetry 08/06/20 08/06/20 08/06/20 00:52 00:57 01:02 Temperature Pulse Rate 77 81 69 Respiratory Rate Blood Pressure Blood Pressure [Right] O2 Sat by Pulse 97 97 98 Oximetry 08/06/20 08/06/20 08/06/20 01:07 01:12 01:15 Temperature Pulse Rate 73 68 81 Respiratory Rate Blood Pressure 130/72 Blood Pressure [Right] O2 Sat by Pulse 98 98 Oximetry 08/06/20 08/06/20 08/06/20 01:17 01:22 01:27 Temperature Pulse Rate 63 61 59 L Respiratory Rate Blood Pressure Blood Pressure [Right] O2 Sat by Pulse 99 96 99 Oximetry 08/06/20 08/06/20 08/06/20 01:32 01:37 01:42 Temperature Pulse Rate 63 61 66 Respiratory Rate Blood Pressure Blood Pressure [Right] O2 Sat by Pulse 98 99 98 Oximetry 08/06/20 08/06/20 08/06/20 01:46 01:47 01:52 Temperature Pulse Rate 59 L 57 L 55 L Respiratory Rate Blood Pressure 104/66 Blood Pressure [Right] O2 Sat by Pulse 98 98 Oximetry 08/06/20 08/06/20 08/06/20 01:57 02:02 02:07 Temperature Pulse Rate 64 57 L 60 Respiratory Rate Blood Pressure Blood Pressure [Right] O2 Sat by Pulse 98 99 98 Oximetry 08/06/20 08/06/20 08/06/20 02:12 02:14 02:17 Temperature Pulse Rate 67 66 64 Respiratory Rate Blood Pressure 111/69 Blood Pressure [Right] O2 Sat by Pulse 99 99 Oximetry 08/06/20 08/06/20 08/06/20 02:22 02:27 02:32 Temperature Pulse Rate 69 72 67 Respiratory Rate Blood Pressure Blood Pressure [Right] O2 Sat by Pulse 100 99 99 Oximetry 08/06/20 08/06/20 08/06/20 02:37 02:42 02:44 Temperature Pulse Rate 65 71 61 Respiratory Rate Blood Pressure 118/81 Blood Pressure [Right] O2 Sat by Pulse 99 100 Oximetry 08/06/20 08/06/20 08/06/20 02:47 02:52 02:57 Temperature Pulse Rate 61 70 71 Respiratory Rate Blood Pressure Blood Pressure [Right] O2 Sat by Pulse 100 99 99 Oximetry 08/06/20 08/06/20 08/06/20 03:02 03:07 03:12 Temperature Pulse Rate 71 73 74 Respiratory Rate Blood Pressure Blood Pressure [Right] O2 Sat by Pulse 99 99 99 Oximetry 08/06/20 08/06/20 08/06/20 03:15 03:17 03:22 Temperature Pulse Rate 68 73 73 Respiratory Rate Blood Pressure 108/62 Blood Pressure [Right] O2 Sat by Pulse 98 99 Oximetry 08/06/20 08/06/20 08/06/20 03:27 03:32 03:37 Temperature Pulse Rate 79 76 75 Respiratory Rate Blood Pressure Blood Pressure [Right] O2 Sat by Pulse 98 98 98 Oximetry 08/06/20 08/06/20 08/06/20 03:42 03:44 03:47 Temperature Pulse Rate 96 H 56 L 58 L Respiratory Rate Blood Pressure 101/57 Blood Pressure [Right] O2 Sat by Pulse 97 99 Oximetry 08/06/20 08/06/20 08/06/20 03:52 03:57 04:02 Temperature Pulse Rate 65 70 59 L Respiratory Rate Blood Pressure Blood Pressure [Right] O2 Sat by Pulse 99 99 99 Oximetry 08/06/20 08/06/20 08/06/20 04:07 04:12 04:14 Temperature Pulse Rate 60 80 63 Respiratory Rate Blood Pressure 136/82 Blood Pressure [Right] O2 Sat by Pulse 99 100 Oximetry 08/06/20 08/06/20 08/06/20 04:17 04:22 04:27 Temperature Pulse Rate 60 61 73 Respiratory Rate Blood Pressure Blood Pressure [Right] O2 Sat by Pulse 100 100 100 Oximetry 08/06/20 08/06/20 08/06/20 04:32 04:37 04:42 Temperature Pulse Rate 62 61 67 Respiratory Rate Blood Pressure Blood Pressure [Right] O2 Sat by Pulse 99 93 100 Oximetry 08/06/20 08/06/20 08/06/20 04:44 04:47 04:52 Temperature Pulse Rate 63 60 70 Respiratory Rate Blood Pressure 120/78 Blood Pressure [Right] O2 Sat by Pulse 100 100 Oximetry 08/06/20 08/06/20 08/06/20 04:57 05:02 05:07 Temperature Pulse Rate 58 L 65 59 L Respiratory Rate Blood Pressure Blood Pressure [Right] O2 Sat by Pulse 100 100 100 Oximetry 08/06/20 08/06/20 08/06/20 05:12 05:15 05:17 Temperature Pulse Rate 58 L 56 L 56 L Respiratory Rate Blood Pressure 92/53 Blood Pressure [Right] O2 Sat by Pulse 100 99 Oximetry 08/06/20 08/06/20 08/06/20 05:22 05:27 05:32 Temperature Pulse Rate 61 60 62 Respiratory Rate Blood Pressure Blood Pressure [Right] O2 Sat by Pulse 99 99 99 Oximetry 08/06/20 08/06/20 08/06/20 05:37 05:42 05:45 Temperature Pulse Rate 58 L 60 56 L Respiratory Rate Blood Pressure 90/51 Blood Pressure [Right] O2 Sat by Pulse 99 98 Oximetry 08/06/20 08/06/20 08/06/20 05:47 05:52 05:57 Temperature Pulse Rate 57 L 60 62 Respiratory Rate Blood Pressure Blood Pressure [Right] O2 Sat by Pulse 99 99 99 Oximetry 08/06/20 08/06/20 08/06/20 06:02 06:07 06:12 Temperature Pulse Rate 60 60 56 L Respiratory Rate Blood Pressure Blood Pressure [Right] O2 Sat by Pulse 99 100 100 Oximetry 08/06/20 08/06/20 08/06/20 06:15 06:17 06:22 Temperature Pulse Rate 65 59 L 64 Respiratory Rate Blood Pressure 108/51 Blood Pressure [Right] O2 Sat by Pulse 100 100 Oximetry 08/06/20 08/06/20 08/06/20 06:27 06:32 06:42 Temperature Pulse Rate 64 53 L 59 L Respiratory Rate Blood Pressure Blood Pressure [Right] O2 Sat by Pulse 100 100 71 L Oximetry 08/06/20 08/06/20 08/06/20 06:43 06:48 06:49 Temperature Pulse Rate 74 61 65 Respiratory Rate Blood Pressure Blood Pressure [Right] O2 Sat by Pulse 72 L 100 75 L Oximetry 08/06/20 08/06/20 08/06/20 06:53 06:58 07:02 Temperature Pulse Rate 65 69 Respiratory Rate Blood Pressure Blood Pressure [Right] O2 Sat by Pulse 100 100 57 L Oximetry 08/06/20 08/06/20 08/06/20 07:03 07:08 07:12 Temperature 97.9 F Pulse Rate 58 L 58 L 56 L Respiratory 18 Rate Blood Pressure 119/68 Blood Pressure 119/70 [Right] O2 Sat by Pulse 100 100 Oximetry 08/06/20 08/06/20 08/06/20 07:13 07:18 07:23 Temperature Pulse Rate 56 L 63 57 L Respiratory Rate Blood Pressure 119/70 Blood Pressure [Right] O2 Sat by Pulse 100 100 100 Oximetry 08/06/20 08/06/20 08/06/20 07:28 07:33 07:38 Temperature Pulse Rate 59 L 63 63 Respiratory Rate Blood Pressure Blood Pressure [Right] O2 Sat by Pulse 100 100 100 Oximetry 08/06/20 08/06/20 08/06/20 07:43 07:44 07:48 Temperature Pulse Rate 70 64 64 Respiratory Rate Blood Pressure 130/74 Blood Pressure [Right] O2 Sat by Pulse 100 100 Oximetry 08/06/20 08/06/20 08/06/20 07:53 07:58 08:03 Temperature Pulse Rate 63 63 62 Respiratory Rate Blood Pressure Blood Pressure [Right] O2 Sat by Pulse 100 100 100 Oximetry 08/06/20 08/06/20 08/06/20 08:08 08:13 08:14 Temperature Pulse Rate 61 69 63 Respiratory Rate Blood Pressure 122/78 Blood Pressure [Right] O2 Sat by Pulse 100 99 Oximetry 08/06/20 08/06/20 08/06/20 08:18 08:23 08:28 Temperature Pulse Rate 84 61 68 Respiratory Rate Blood Pressure Blood Pressure [Right] O2 Sat by Pulse 100 100 99 Oximetry 08/06/20 08/06/20 08/06/20 08:33 08:38 08:43 Temperature Pulse Rate 67 59 L 60 Respiratory Rate Blood Pressure Blood Pressure [Right] O2 Sat by Pulse 98 100 100 Oximetry 08/06/20 08/06/20 08/06/20 08:44 08:47 08:48 Temperature Pulse Rate 63 70 62 Respiratory Rate Blood Pressure 115/67 Blood Pressure [Right] O2 Sat by Pulse 84 100 Oximetry 08/06/20 08/06/20 08/06/20 08:53 08:54 08:58 Temperature Pulse Rate 59 L 84 58 L Respiratory Rate Blood Pressure Blood Pressure [Right] O2 Sat by Pulse 100 86 100 Oximetry 08/06/20 08/06/20 08/06/20 09:03 09:08 09:13 Temperature Pulse Rate 69 74 60 Respiratory Rate Blood Pressure Blood Pressure [Right] O2 Sat by Pulse 93 100 98 Oximetry 08/06/20 08/06/20 09:14 09:16 Temperature Pulse Rate 56 L 57 L Respiratory Rate Blood Pressure 128/84 Blood Pressure [Right] O2 Sat by Pulse 93 Oximetry - Exam Abdomen: Present: normal appearance, soft. Absent: distention, tenderness, guarding, rigidity Uterus: Present: fundal height above umbilicus. Absent: tenderness FHR: category 1 Uterine Contraction Monitor Mode: External Cervical Dilatation: 4 Cervical Effacement Percentage: 60 station: -3 Uterine Contraction Pattern: Regular Uterine Contraction Intensity: Moderate Extremities: normal - Labs Labs: Abnormal Labs 08/05/20 14:50 Membranes Rupture Positive A Laboratory Results - last 24 hr 08/05/20 08/05/20 08/05/20 14:50 18:32 18:32 WBC 8.5 RBC 4.18 Hgb 12.0 Hct 36.0 MCV 86 MCH 29 MCHC 33 RDW 14.7 Plt Count 367 Membranes Rupture Positive A Blood Type O POSITIVE Antibody Screen Negative
[2020-08-06] MEDS ORDERED: OXYTOCIN DRIP 30 UNITS/500 ML BAG IV SCH (11:00)
[2020-08-06] MEDS: AMPICILLIN/NS 1 GM/50 ML 1 GM/50 ML BAG IV SCH ×2 (11:09→15:02)
--- NOTE | 2020-08-06 13:37 | Event Note ---
Date: 08/06/20 [facility] [place]
[2020-08-06] MEDS ORDERED: NALOXONE 2 MG/2 ML INJ IV PRN (16:31)
[2020-08-06] MEDS ORDERED: LACTATED RINGERS 250 ML IV SOLN IV ONE (16:31)
[2020-08-06] MEDS ORDERED: NalbUPHINE 10 MG/1 ML INJ IV PRN (16:31)
[2020-08-06] MEDS ORDERED: diphenhydrAMINE 50 MG/ML VIAL IV PRN (16:31)
[2020-08-06] MEDS ORDERED: ePHEDrine SULFATE 50 MG/1 ML INJ IV PRN (16:31)
--- NOTE | 2020-08-06 16:32 | Anesthesia Consultation ---
Anesthesia Consult and Med Hx Date of service: 08/06/20 - Airway Anesthetic Teeth Evaluation: Good ROM Head & Neck: Adequate Mental/Hyoid Distance: Adequate Mallampati Class: Class II Intubation Access Assessment: Probably Good - Pulmonary Exam CTA: Yes - Cardiac Exam Cardiac Exam: RRR - Pre-Operative Health Status ASA Pre-Surgery Classification: ASA2 Proposed Anesthetic Plan: Epidural - Pulmonary Hx Smoking: No Hx Asthma: Yes (last attack >10 years) COPD: No Hx Pneumonia: No Hx Sleep Apnea: No - Cardiovascular System Hx Hypertension: No Hx Heart Attack/AMI: No Hx Angina: No - Central Nervous System Hx Seizures: No Hx Psychiatric Problems: No - Gastrointestinal Hx Gastroesophageal Reflux Disease: No - Endocrine Hx Renal Disease: No Hx End Stage Renal Disease: No Hx Liver Disease: No Hx Insulin Dependent Diabetes: No Hx Non-Insulin Dependent Diabetes: No Hx Hypothyroidism: No Hx Hyperthyroidism: No - Hematic Hx Anemia: No Hx Sickle Cell Disease: No - Other Systems Hx Alcohol Use: No
--- NOTE | 2020-08-06 16:33 | Progress Note ---
Labor Epidural - Labor Epidural Start Time: 16:15 Stop Time: 16:26 Performed by:: KELSEY WALDRON Procedure: Patient is requesting epidural for labor and pain. H&P, labs were reviewed. Patient IDed, H&P reviewed, all questions and concerns were answered, and consent was signed. Timeout was performed at bedside. Patient in sitting position. Sterile prep and drape was performed. 3ml of 1% lidocaine skin wheal at L[3]- L [4]. 18-gauge Tuohy epidural needle was advanced to loss of resistance with air technique 6cm. Negative CSF negative blood. Epidural catheter advanced to [11] centimeters. [negative] Aspiration [negative] test dose. Sterile dressing applied. Patient tolerated procedure.
--- NOTE | 2020-08-06 16:36 | Event Note ---
Date: 08/06/20 SVE 9/95/0. Patient has just received epidural.
[2020-08-06] MEDS ORDERED: fentaNYL-BUPIV 2 MCG/ML-0.125% 200 MCG/100 ML BAG EPIDURAL SCH (17:00)
[2020-08-06] MEDS ORDERED: LIDOCAINE (2%) 20 MG/1 ML VIAL 20 ML MDV INFILTRATI ONE (17:48)
[2020-08-06] MEDS ORDERED: HYDROcodone/ACETAMINOPHEN 5-325 MG TAB PO PRN (18:17)
[2020-08-06] MEDS ORDERED: WITCH HAZEL/ GLYCERIN PAD TP PRN (18:17)
[2020-08-06] MEDS ORDERED: LANOLIN/ZINC/DIMETHICONE (LANSINOH) 7 GM TP PRN (18:17)
[2020-08-06] MEDS ORDERED: MAGNESIUM HYDROXIDE (MOM) ORAL LIQD UDC PO PRN (18:17)
[2020-08-06] MEDS ORDERED: BENZOCAINE/MENTHOL 20/0.5% TOP SPRAY 56 GM TP PRN (18:17)
--- NOTE | 2020-08-06 18:41 | Procedure Note ---
OB Delivery Note - Delivery Date of Delivery: 08/06/20 Surgeon: LINDA COYNE Estimated blood loss: 200cc - Vaginal Delivery presentation: vertex Delivery position: OA Intrapartum events: meconium Delivery augmentation: pitocin Delivery monitor: external FHT, external uterine Route of delivery: Delivery placenta: spontaneous Delivery cord: 3 umbilical vessels Episiotomy: none Delivery laceration: none Anesthesia: epidural Delivery comments: Spontaneous vaginal delivery at 17:51 of liveborn male weighing 7 lb. 13 oz. over intact perineum with apgars of 8/9. Epidural anesthesia. Thin meconium stained amniotic fluid. LULU present for delivery. No nuchal cord. Snug shoulders/poor maternal pushing effort, resolved with McRobert's maneuver and delivery of posterior shoulder. Baby was vigorous at and was placed skin to skin with mom immediately after ; spontaneous cry and respirations. Baby was suctioned with bulb syringe and dried with warm towels. 3 vessel cord double clamped and cut and cord blood was obtained. Spontaneous delivery of intact placenta and membranes at 17:53; trailing membranes. Pitocin to IV fluids after delivery of placenta. Fundus firm and midline. EBL 200 cc. No lacerations noted; small perineal skid mariusz/abrasion that was not bleeding was not repaired. Vaginal sweep negative. Sponge count correct. Mom and baby stable. Baby moving all extremities well. US ordered to check for retained placenta/accessory lobe.
--- NOTE | 2020-08-06 19:47 | Ultrasound Report ---
ULTRASOUND PELVIS INDICATION: check for retained placenta/accessory lobe. TECHNIQUE: Transabdominal. Duplex Color Doppler used: Yes. COMPARISON: None available FINDINGS: Uterus: Present. Not measured Endometrial complex: Thickened and heterogeneous in lower uterine segment measuring 3.1 cm Mass lesions: None. Additional findings: None. Right Ovary --not visualized Left Ovary--not visualized Free Fluid: None. Additional Findings: None. IMPRESSION: 1. Thickened endometrial complex in a uterus. It is difficult to distinguish a uterus containing clots from retained products of conception. Clinical correlation is recommended. Signer Name: Tomás Kaufman MD Signed: 08/06/2020 7:43 PM Workstation Name: [id number]
--- NOTE | 2020-08-06 21:40 | Event Note ---
Date: 08/06/20 Fundus firm and midline. Moderate sized clot expressed. Lochia is small to moderate. Oral Methergine series started.
[2020-08-06] MEDS ORDERED: DOCUSATE SODIUM 100 MG CAP PO SCH (22:00)
[2020-08-06] MEDS: METHYLERGONOVINE 0.2 MG TABLET PO SCH (22:54)
[2020-08-06] MEDS: IBUPROFEN 600 MG TAB PO SCH (22:55)
[2020-08-07] MEDS: IBUPROFEN 600 MG TAB PO SCH ×2 (05:21)
[2020-08-07] MEDS: METHYLERGONOVINE 0.2 MG TABLET PO SCH ×2 (05:22→14:30)
[2020-08-07 07:31] LABS: Hemoglobin 10.1 gm/dl (10.1-14.3)
--- NOTE | 2020-08-07 10:59 | Progress Note ---
Assessment and Plan A: PP Day #1 Asymptomatic Anemia P: Follow Routine Orders D/C Methergine Encouraged to Increase Dietary Iron D/C Home today per Routine Orders RTO in 6 Weeks Plans Nexplanon for Contraceptive Subjective - Subjective Date of service: 08/07/20 Principal diagnosis: at 39 weeks, 6 days gestation, SROM Patient reports: appetite normal, voiding normally, pain well controlled, flatus, ambulating normally : doing well, bottle feeding Objective - Vital Signs Latest vital signs: Vital Signs Temp Pulse Resp BP BP Pulse Ox 08/07/20 09:14 97.8 F 89 18 114/65 100 08/07/20 04:00 98.6 F 74 18 104/78 08/06/20 21:15 98.2 F 83 18 118/70 98 08/06/20 20:57 75 98 08/06/20 20:53 85 133/75 08/06/20 20:52 75 100 08/06/20 20:47 75 99 08/06/20 20:42 72 100 08/06/20 20:37 81 100 08/06/20 20:32 79 100 08/06/20 20:27 75 100 08/06/20 20:23 71 117/66 08/06/20 20:22 71 99 08/06/20 20:17 73 100 08/06/20 20:12 74 100 08/06/20 20:07 93 H 98 08/06/20 20:02 78 97 08/06/20 19:57 80 99 08/06/20 19:53 67 129/72 08/06/20 19:52 68 100 08/06/20 19:47 69 100 08/06/20 19:42 64 100 08/06/20 19:37 72 100 08/06/20 19:32 72 100 08/06/20 19:27 70 100 08/06/20 19:23 68 131/67 08/06/20 19:22 109 H 85 08/06/20 19:21 97.6 F 75 18 91 08/06/20 19:17 79 81 L 08/06/20 19:16 75 79 L 08/06/20 19:12 69 100 08/06/20 19:09 77 92 08/06/20 19:07 55 L 99 08/06/20 19:02 67 100 08/06/20 19:00 70 89 05 18:56 69 99 05 18:53 70 134/72 05 18:51 74 78 L 08/06/20 18:49 75 93 05 18:46 67 98 05 18:43 78 85 08/06/20 18:41 80 96 05 18:38 87 88 05 18:36 74 90 05 18:31 78 79 L 08/06/20 18:26 76 100 05 18:22 74 133/80 05 18:21 67 100 05 18:20 65 126/74 05 18:19 59 L 126/70 08/06/20 18:18 68 92 05 18:16 73 127/75 100 05 18:14 75 135/79 05 18:12 75 130/76 05 18:11 63 100 05 18:10 76 127/78 83 L 08/06/20 18:08 63 129/73 05 18:06 72 129/76 100 05 18:04 65 121/60 05 18:02 81 132/62 86 05 18:01 81 99 08/06/20 18:00 84 117/60 05 17:58 83 117/55 05 17:56 88 112/58 98 05 17:54 75 121/58 05 17:52 89 118/56 05 17:51 98 H 154/64 98 05 17:49 91 H 195/83 05 17:46 78 120/77 99 05 17:44 75 119/68 05 17:43 82 131/78 05 17:41 69 117/62 99 05 17:36 85 144/63 86 05 17:34 71 119/64 05 17:33 92 H 134/70 05 17:31 78 100 05 17:28 102 H 120/74 05 17:26 98 H 116/69 94 05//21 17:25 114 H 126/74 05/23/21 17:22 89 121/68 05//21 17:21 65 91 05//21 17:20 77 120/68 05//21 17:18 64 121/67 05//21 17:16 64 120/66 97 05//21 17:14 68 126/68 84 05//21 17:12 62 124/67 05/21 17:11 62 96 05//21 17:10 62 119/66 05//21 17:08 63 117/65 92 05//21 17:06 67 119/65 90 05//21 17:04 66 117/63 05/21 17:02 66 119/65 05/21 17:01 69 94 05/21 17:00 64 121/64 05//21 16:58 73 121/77 05/21 16:56 71 117/69 94 05/21 16:54 62 116/65 05//21 16:52 67 118/66 05//21 16:51 63 98 05//21 16:50 63 119/65 05//21 16:49 78 94 05/21 16:48 67 120/66 05/21 16:46 65 121/67 98 05//21 16:44 59 L 122/68 05/21 16:43 72 91 05//21 16:42 61 121/66 05//21 16:41 72 98 05//21 16:40 78 120/70 05//21 16:38 73 126/74 05//21 16:36 73 131/72 100 05/23/21 16:34 68 122/70 05//21 16:32 73 117/67 05//21 16:31 78 100 05//21 16:30 79 110/66 05/23/21 16:29 70 130/64 05/23/21 16:28 68 120/60 89 05/23/21 16:26 75 109/66 100 05/23/21 16:24 78 120/66 05/23/21 16:22 72 113/57 05/23/21 16:21 66 100 08/06/20 16:20 72 132/75 08/06/20 16:16 69 83 L 08/06/20 16:15 64 81 L 08/06/20 16:14 75 138/72 08/06/20 15:45 63 143/87 08/06/20 15:14 80 123/58 08/06/20 15:06 79 130/76 08/06/20 15:04 97.5 F L 18 08/06/20 14:30 18 08/06/20 14:23 72 99 08/06/20 14:18 63 100 08/06/20 14:15 67 131/77 08/06/20 14:13 78 100 08/06/20 14:08 74 98 08/06/20 14:03 70 98 08/06/20 13:58 70 98 08/06/20 13:53 79 99 08/06/20 13:48 62 99 08/06/20 13:45 64 121/73 08/06/20 13:43 79 100 08/06/20 13:38 66 99 08/06/20 13:33 69 100 08/06/20 13:28 65 99 08/06/20 13:23 74 100 08/06/20 13:18 72 100 08/06/20 13:14 85 118/77 08/06/20 13:13 100 H 99 08/06/20 13:08 80 99 08/06/20 13:03 77 100 08/06/20 12:58 67 99 08/06/20 12:53 65 100 08/06/20 12:48 61 100 08/06/20 12:44 68 124/75 05 12:43 68 100 08/06/20 12:38 69 100 08/06/20 12:33 67 100 08/06/20 12:28 78 100 08/06/20 12:23 76 100 08/06/20 12:18 64 100 05 12:14 66 139/86 08/06/20 12:13 71 100 08/06/20 12:08 67 100 08/06/20 12:03 73 100 05 12:01 97.6 F 18 08/06/20 11:58 79 98 08/06/20 11:53 58 L 99 08/06/20 11:48 65 99 08/06/20 11:45 56 L 120/69 08/06/20 11:43 60 99 08/06/20 11:38 60 100 08/06/20 11:33 60 100 08/06/20 11:28 59 L 99 08/06/20 11:23 61 99 08/06/20 11:18 62 100 08/06/20 11:14 57 L 127/75 08/06/20 11:13 57 L 99 08/06/20 11:08 64 98 08/06/20 11:03 64 99 08/06/20 10:58 81 100 Intake and Output 08/06/20 08/07/20 08/07/20 22:59 06:59 14:59 Output Total 550 Balance -550 Output: Urine 550 Indwelling Catheter 150 Uretheral (Garcia) 100 Void 300 Other: Total, Output Amount 300 - Exam Breasts: Present: normal Cardiovascular: Present: Regular rate Lungs: Present: Clear to auscultation, Normal air movement Abdomen: Present: normal appearance, soft, normal bowel sounds Uterus: Present: normal, firm, fundal height below umbilicus Extremities: Present: normal
--- NOTE | 2020-08-07 11:01 | Discharge Summary ---
Providers - Providers Date of Admission: 08/05/20 17:29 Date of discharge: 08/07/20 Attending physician: VALE TRISTAN MD Primary care physician: [facility] QUINTEROS Hospitalization Reason for admission: rupture of membranes Delivery: Episiotomy: none Laceration: none Other procedures: none complications: none Discharge diagnosis: IUP at term delivered [place] baby: male Condition at discharge: Good Disposition: DC-01 TO HOME OR SELFCARE Plan - Provider Discharge Summary Activity: routine, no sex for 6 weeks, no heavy lifting 4 weeks, no strenuous exercise Diet: routine Instructions: routine Additional instructions: [] Smoking cessation referral if applicable(refer to patient education folder for contact #) [] Refer to [facility]'s [facility] Booklet Call your doctor immediately for: * Fever > 100.5 * Heavy vaginal bleeding ( >1 pad per hour) * Severe persistent headache * Shortness of breath * Reddened, hot, painful area to leg or breast * Drainage or odor from incision. * Keep incision clean and dry at all times and follow doctor's instructions regarding bathing/showering - Follow up plan Follow up: LOC QUINTEROS MD [Primary Care Provider] - 6 Weeks
--- NOTE | 2020-08-07 12:58 | Post Anesthesia Evaluation ---
- Post Anesthesia Evaluation Patient Participated: Yes Airway Patent: Yes Stable Respiratory Function: Yes Nausea/Vomiting: No Temp > 96.8F: Yes Pain Manageable: Yes Adequeate Hydration: Yes Anesthesia Complications: No Block Receding Appropriately: Yes Patient on Ventilator: No
[2020-08-07] MEDS ORDERED: METHYLERGONOVINE 0.2 MG TABLET ONE (14:44)
[2020-08-07 19:44] VITALS: BP 124/64
== END 2020-08-07 19:30 | disposition home or self-care (01) | DRG 775 ==
LOC: TRG 13:46 → APU 13:50 → LD 17:29 → TRG 18:10 → OB 08-06 21:20
PROVIDERS: ADMIT Obstetrics & Gynecology; ATTEND Obstetrics & Gynecology
PROC: 10E0XZZ Delivery of Products of Conception, External Approach (ICD-10-PCS; principal; 2020-08-06)
PROC: 3E033VJ Introduction of Other Hormone into Peripheral Vein, Percutaneous Approach (ICD-10-PCS; 2020-08-06)
PROC: 3E0R3BZ Introduction of Anesthetic Agent into Spinal Canal, Percutaneous Approach (ICD-10-PCS; 2020-08-06)
PROC: 00HU33Z Insertion of Infusion Device into Spinal Canal, Percutaneous Approach (ICD-10-PCS; 2020-08-06)
DX: O99.824 Streptococcus B carrier state complicating childbirth (principal); Z3A.39 39 weeks gestation of pregnancy; Z37.0 Single live birth; O99.03 Anemia complicating the puerperium; Z20.822 Contact with and (suspected) exposure to COVID-19; O77.0 Labor and delivery complicated by meconium in amniotic fluid; D64.9 Anemia, unspecified
CPT/HCPCS: 36415; 59025; 59200; 76857; 84112; 85014; 85018; 85027; 86850; 86900; 86901; 96360; G0378; J0290; J2590; J3010; J7120; U0003

== ENCOUNTER 2021-11-07 09:54 | Emergency (ER) | payer MEDICAID ==
[2021-11-07 11:24] LABS: Hematocrit 28.7 % (30.3-42.9); Hemoglobin 8.7 gm/dl (10.1-14.3); Mean Corpuscular HGB Conc 30 % (30-34); Platelet Count 344 K/mm3 (140-440); Red Blood Count 4.24 M/mm3 (3.65-5.03); Red Cell Distribution Width 17.6 % (13.2-15.2)
[2021-11-07 11:39] LABS: Mean Corpuscular Volume 68 fl (79-97)
[2021-11-07 13:06] LABS: Alanine Aminotransferase 19 units/L (7-56); Albumin 4.7 g/dL (3.9-5); Blood Urea Nitrogen 5 mg/dL (7-17); Calcium 9.5 mg/dL (8.4-10.2); Hemolysis Index 10
[2021-11-07 13:07] LABS: BUN/Creatinine Ratio 7
[2021-11-07 13:49] LABS: Mucus,Urine FEW /HPF
[2021-11-07 13:53] LABS: Color,Urine Yellow (Yellow)
--- NOTE | 2021-11-07 14:23 | Emergency Department Report ---
ED General Adult HPI - General Chief complaint: Abdominal Pain Stated complaint: CHEST PAIN /FEVER/LOW BACK PAIN Time Seen by Provider: 11/07/21 13:57 Source: patient Mode of arrival: Ambulatory Limitations: No Limitations - History of Present Illness Initial comments: Patient is a 26-year-old female 3 months who presents with upper respiratory congestion, rhinorrhea, sore throat, fatigue, cough, body aches and lightheadedness that started last night. She has had some anorexia but no ageusia or anosmia. Fever with a T-max of 102.5 last night. She has had some nausea but no vomiting. She is not vaccinated for COVID but does not know of any exposure to same. Although triage note states she has had abdominal pain she denies this. She also denies headaches. Has had some significant fatigue. She does states she had some anemia while she was but she stopped the iron after she delivered and has not had any follow-up since. She is currently having her first post menses. - Related Data Previous Rx's Medication Instructions Recorded Last Taken Type Pnv No.153/FA/Om3/Dha/Epa/Fish 1 each PO DAILY 60 Days #60 tab-cap 11/07/21 Unknown Rx [[facility]] Allergies Allergy/AdvReac Type Severity Reaction Status Date / Time No Known Allergies Allergy Verified 11/07/21 10:59 ED Review of Systems ROS: Stated complaint: CHEST PAIN /FEVER/LOW BACK PAIN Other details as noted in HPI Comment: All other systems reviewed and negative Constitutional: chills, fever, malaise, weakness Eyes: denies: eye pain, eye discharge ENT: throat pain, congestion. denies: ear pain Respiratory: cough. denies: shortness of breath, SOB with exertion, SOB at rest, wheezing Cardiovascular: chest pain (She states this is from coughing.). denies: palpitations, dyspnea on exertion, edema, syncope Endocrine: denies: intolerance to cold, intolerance to heat, unexplained weight gain, unexplained weight loss Gastrointestinal: nausea. denies: abdominal pain, vomiting, diarrhea, constipation, hematemesis, hematochezia Genitourinary: denies: urgency, dysuria, frequency, hematuria Musculoskeletal: myalgia. denies: joint swelling Skin: denies: rash Neurological: denies: headache Psychiatric: denies: anxiety, depression Hematological/Lymphatic: denies: easy bleeding, easy bruising ED Past Medical Hx - Past Medical History Hx Hypertension: No Hx Heart Attack/AMI: No Hx Congestive Heart Failure: No Hx Diabetes: No Hx Deep Vein Thrombosis: No Hx Liver Disease: No Hx Renal Disease: No Hx Sickle Cell Disease: No Hx Seizures: No Hx Asthma: Yes (last attack >10 years) Hx COPD: No Hx HIV: No Additional medical history: 2 miscarriages - Social History Smoking Status: Never Smoker Substance Use Type: Alcohol (Rarenone recent.) - Medications Home Medications: Home Medications Medication Instructions Recorded Confirmed Last Taken Type Pnv No.153/FA/Om3/Dha/Epa/Fish 1 each PO DAILY 60 Days #60 tab-cap 11/07/21 Unknown Rx [[facility]] ED Physical Exam - General Limitations: No Limitations General appearance: alert, in no apparent distress - Head Head exam: Present: atraumatic, normocephalic - Eye Eye exam: Present: normal appearance, scleral icterus, conjunctival injection - ENT ENT exam: Present: other (Clear rhinorrhea) - Neck Neck exam: Present: normal inspection, full ROM. Absent: tenderness, meningismus - Respiratory Respiratory exam: Present: normal lung sounds bilaterally. Absent: respiratory distress, wheezes, rales, rhonchi, stridor - Cardiovascular Cardiovascular Exam: Present: regular rate, normal rhythm, normal heart sounds - GI/Abdominal GI/Abdominal exam: Present: soft, normal bowel sounds. Absent: distended, tenderness, guarding, rebound, rigid - Back Exam Back exam: Present: normal inspection. Absent: tenderness, CVA tenderness (R), CVA tenderness (L) - Neurological Exam Neurological exam: Present: alert, oriented X3, CN II-XII intact, normal gait - Psychiatric Psychiatric exam: Present: normal affect, normal mood - Skin Skin exam: Present: warm, dry, intact ED Course Vital Signs 11/07/21 10:57 Temperature 98.5 F Pulse Rate 89 Respiratory 18 Rate Blood Pressure 117/66 [Left] O2 Sat by Pulse 99 Oximetry ED Medical Decision Making - Lab Data Result diagrams: 11/07/21 11:07 11/07/21 11:07 - Medical Decision Making This is likely viral syndrome and likely COVID. Discussed with patient. She does have a COVID test at home and plans to use that. She understands that it is intended for multiple tests and she will seek a repeat test. Also discussed with her that she should follow-up with her [employer] regarding her hemoglobin. Last one in our system was 10.1 and it is 8.7 today. We will have her start taking iron now and follow-up for repeat. She verbalizes understanding of this plan. Lungs are clear and she is nontoxic-appearing, so I do not feel that any further testing is required. Discussed with her need to take guaifenesin, warm compresses to the sinuses, warm salt water gargles, nasal saline. Tylenol as needed for fever and pain. Recommended monitoring pulse oximetry and return if any readings less than 90%. - Differential Diagnosis Viral syndrome. COVID. Anemia. Critical care attestation.: If time is entered above; I have spent that time in minutes in the direct care of this critically ill patient, excluding procedure time. ED Disposition Clinical Impression: Viral syndrome, Anemia Disposition: 01 HOME / SELF CARE / HOMELESS Is pt being admited?: No Condition: Stable Instructions: COVID-19 Frequently Asked Questions, Viral Respiratory Infection, [id number], COVID-19: How to Protect Yourself and Others - CDC, Abdominal Pain (ED) Additional Instructions: take guaifenesin, warm compresses to the sinuses, warm salt water gargles, nasal saline. Tylenol as needed for fever and pain. Recommended monitoring pulse oximetry and return if any readings less than 90% or if any worsening of symptoms. Start vitamins and or [id number] iron pills as soon as possible and be sure to follow-up with your WE[employer] TREATMENT OFFSIDER or as referred today. Prescriptions: Pnv No.153/FA/Om3/Dha/Epa/Fish [[facility]] 1 each PO DAILY 60 Days #60 tab-cap Referrals: CHANDNI HELMS MD [Staff Physician] - 3-5 Days Forms: Work/School Release Form(ED) Time of Disposition: 14:37
[2021-11-07 15:17] VITALS: BP 118/72
== END 2021-11-07 15:16 | disposition home or self-care (01) ==
LOC: ED 09:54
DX: B34.9 Viral infection, unspecified (principal); D64.9 Anemia, unspecified; J45.909 Unspecified asthma, uncomplicated; Z72.89 Other problems related to lifestyle; Z79.899 Other long term (current) drug therapy
CPT/HCPCS: 36415; 80053; 81001; 83690; 84703; 85027; 99283